=== PATIENT | female | born 1965 | race Two or more races ===

== ENCOUNTER 2016-12-06 10:15 | Emergency (ER) | payer OTHER ==
[2016-12-06 10:24] VITALS: BP 129/69; PULSE 77; TEMP 97.8; BMI 28.3
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
== END 2016-12-06 12:07 | disposition home or self-care (01) ==
LOC: JERFT 10:15
DX: E11.42 Type 2 diabetes mellitus with diabetic polyneuropathy (principal); I10 Essential (primary) hypertension; E78.00 Pure hypercholesterolemia, unspecified
CPT/HCPCS: 99281-25

== ENCOUNTER 2019-08-06 10:49 | Emergency (ER) | payer OTHER ==
[2019-08-06 10:54] VITALS: TEMP 98.8; BMI 26.2
--- NOTE | 2019-08-06 11:14 | PDOC ---
History of Present Illness - General Chief Complaint: Injury Stated Complaint: RIGHT FOOT PAIN s/p fall Time Seen by Provider: 08/06/19 10:55 - History of Present Illness Initial Comments: 08/06/19 11:08 54-year-old female with a past medical history of hypertension, non-insulin- dependent diabetes, hyperlipidemia presents the emergency department with right foot pain after a fall last night. Patient reports it was dark, and she was descending 2 steps, when she stepped on a rock with her right foot. She reports the rock was begin after cause her to fall over. Did not hit her head. Denies any other pain or injuries other than her right foot. Took Motrin for pain and also applied mustard oil to her foot, which she states has helped with her pain. Patient has otherwise been in her usual state of health, denies any recent fevers, chills, headaches, weakness, dizziness, chest pain, shortness of breath, abdominal pain, nausea, vomiting, diarrhea, urinary symptoms. Past History - Past Medical History Allergies/Adverse Reactions: Allergies Allergy/AdvReac Type Severity Reaction Status Date / Time No Known Allergies Allergy Verified 08/06/19 10:51 Home Medications: Ambulatory Orders Glipizide [Glipizide ER] 2.5 mg PO DAILY 08/06/19 Hydrochlorothiazide [Hctz -] 50 mg PO DAILY 08/06/19 Metoprolol Tartrate [Lopressor] 100 mg PO DAILY 08/06/19 Ramipril [Altace] 10 mg PO DAILY 08/06/19 Simvastatin [Zocor -] 20 mg PO HS 08/06/19 COPD: No Diabetes: Yes HTN: Yes Hypercholesterolemia: Yes - Suicide/Smoking/Psychosocial Hx Smoking History: Never smoked Hx Alcohol Use: No Drug/Substance Use Hx: No Review of Systems - Review of Systems Comments:: 08/06/19 11:12 GENERAL/CONSTITUTIONAL: No fever or chills. No weakness. HEAD, EYES, EARS, NOSE AND THROAT: No change in vision. No ear pain or discharge. No sore throat. GASTROINTESTINAL: No nausea, vomiting, diarrhea or constipation. GENITOURINARY: No dysuria, frequency, or change in urination. CARDIOVASCULAR: No chest pain or shortness of breath. RESPIRATORY: No cough, wheezing, or hemoptysis. MUSCULOSKELETAL: +R foot pain. No neck or back pain. SKIN: No rash NEUROLOGIC: No headache, vertigo, loss of consciousness, or change in strength/ sensation. ENDOCRINE: No increased thirst. No abnormal weight change. HEMATOLOGIC/LYMPHATIC: No anemia, easy bleeding, or history of blood clots. ALLERGIC/IMMUNOLOGIC: No hives or skin allergy. *Physical Exam - Vital Signs Last Vital Signs Temp Pulse Resp BP Pulse Ox 98.8 F 85 18 199/109 H 98 08/06/19 10:50 08/06/19 10:50 08/06/19 10:50 08/06/19 10:50 08/06/19 10:50 - Physical Exam Comments: 08/06/19 11:12 GENERAL: Awake, alert, and fully oriented, in no acute distress HEAD: No signs of trauma EYES: PERRLA, EOMI, sclera anicteric, conjunctiva clear ENT: Oropharynx clear without exudates. Moist mucosa NECK: Normal ROM, supple, no lymphadenopathy, JVD, or masses LUNGS: Breath sounds equal, clear to auscultation bilaterally. No wheezes, and no crackles HEART: Regular rate and rhythm, normal S1 and S2, no murmurs, rubs or gallops ABDOMEN: Soft, nontender, normoactive bowel sounds. No guarding, no rebound. No masses EXTREMITIES: R foot with ecchymosis extended from 5th metatarsal to mid lateral arch, +ttp of distal 4th metatarsal and base of the 5th metatarsal. 2+ DP and TP pulse. Normal strength dorsi and plantar flexion. Normal sensation to R foot. No edema. Otherwise, normal range of motion, no edema. No clubbing or cyanosis. No cords, erythema, or tenderness NEUROLOGICAL: Normal speech, cranial nerves intact, equal strength and sensation b/l SKIN: Warm, Dry, normal turgor, no rashes or lesions noted. ED Treatment Course - RADIOLOGY Radiology Studies Ordered: Category Date Time Status FOOT-RIGHT [RAD] Stat Radiology 08/06/19 11:06 Ordered Medical Decision Making - Medical Decision Making 08/06/19 11:14 54yo F prsents to the ED with R foot pain Vitals with elevated BP, pt did not take BP meds this AM, will confirm with pharmacy her meds/doses R foot NVI intact on exam Foot contusion vs fracture Plan for XR R foot, reassess Pt declines pain medications 08/06/19 12:57 XR with [place] fracture Pt had seen Dr. Hannon before, case and x-ray discussed with Dr. Small REcommends hard soled shoe, NWB Hard soled shoe placed, pt instructed on crutch use/non weight bearing status Will f/u with Dr. Hannon Pt given home doses of HCTZ, ramipril for her elevated BP Does not want to wait for recheck, states her BP is often this elevated before she takes her meds (207/111) Will f/u with her PMD She is clincially stable for DC home I discussed the physical exam findings, ancillary test results and final diagnoses with the patient. I answered all of the patient's questions. The patient was satisfied with the care received and felt comfortable with the discharge plan and treatment plan. The patient will call their primary care physician within 24 hours to arrange follow-up and will return to the Emergency Department with any new, persistent or worsening symptoms. *DC/Admit/Observation/Transfer Diagnosis at time of Disposition: [place] fracture, Fall, Foot pain - Discharge Dispostion Disposition: HOME Condition at time of disposition: Stable Decision to Admit order: No - Referrals Referrals: Venecia Irvin MD [Primary Care Provider] - Dillon Hannon MD [Staff Physician] - - Patient Instructions Printed Discharge Instructions: DI for Foot Fracture Additional Instructions: Your X-ray showed a fracture of your foot. We placed a hard soled shoe on your foot. Make sure to use the crutches at ALL TIMES and do not bear weight on your foot unless instructed otherwise by Dr. Hannon. Follow up with Dr. Hannon within 5 days Take motrin or tylenol as needed for pain Return to the emergency department if you have any new, worsening or concerning symptoms. - Post Discharge Activity Forms/Work/School Notes: Back to Work - Attestations Physician Attestion: 08/06/19 13:07 I, Dr. Liat Tran MD, attest that this document has been prepared under my direction and personally reviewed by me in its entirety. I further attest, that it accurately reflects all work, treatment, procedures and medical decision -making performed by me.
[2019-08-06] MEDS ORDERED: RAMIPRIL 5 MG CAPSULE (FP) PO ONE (12:12)
[2019-08-06] MEDS ORDERED: HYDROCHLOROTHIAZIDE 50 MG TABLET PO ONE (12:12)
[2019-08-06] MEDS ORDERED: HYDROCHLOROTHIAZIDE 25 MG TABLET (FP) ONE (12:20)
[2019-08-06 13:32] VITALS: BP 207/111; PULSE 80
== END 2019-08-06 13:27 | disposition home or self-care (01) ==
LOC: FER 10:49
DX: S92.301A Fracture of unspecified metatarsal bone(s), right foot, initial encounter for closed fracture (principal); W10.9XXA Fall (on) (from) unspecified stairs and steps, initial encounter; Y93.89 Activity, other specified; Y92.89 Other specified places as the place of occurrence of the external cause; I10 Essential (primary) hypertension; E78.00 Pure hypercholesterolemia, unspecified; E11.9 Type 2 diabetes mellitus without complications; Z79.4 Long term (current) use of insulin
CPT/HCPCS: 73630-TC-RT-FY; 99283-25